=== PATIENT | male | born 1950 | race African-American/Black ===

== ENCOUNTER 2019-11-11 18:27 | Inpatient (IN) | payer OTHER ==
[2019-11-11 19:41] VITALS: BMI 25.2
--- NOTE | 2019-11-11 21:23 | HP ---
CIWA Score - Admission Criteria [facility]ASAS Guidelines: Admission for Medically Managed Detox: Requires at least one of the followin. CIWA greater than 12 2. Seizures within the past 24 hours 3. Delirium tremens within the past 24 hours 4. Hallucinations within the past 24 hours 5. Acute intervention needed for co occurring medical disorder 6. Acute intervention needed for co occurring psychiatric disorder 7. Severe withdrawal that cannot be handled at a lower level of care (continued vomiting, continued diarrhea, abnormal vital signs) requiring intravenous medication and/or fluids 8. Admitting History and Physical - Smoking History Smoking history: Current every day smoker Have you smoked in the past 12 months: Yes Aproximately how many cigarettes per day: 20 - Alcohol/Substance Use Hx Alcohol Use: Yes Admission ROS BHS - HPI Chief Complaint: Here for rehab cause I want to stop drinking. I'm an alcoholic. Allergies/Adverse Reactions: Allergies Allergy/AdvReac Type Severity Reaction Status Date / Time No Known Allergies Allergy Verified 11/11/19 19:27 History of Present Illness: 68 yo presents to [facility] post discharge from [facility]. Was thee from 11/07 to 11/11/19. Adm dx pneumonia and alcohol dependence w/ withdrawal. and s/p facial trauma from fall. Fall r/t intoxication. CT 11/06/19 Maxillofacial - No fx CT Head 11/06/19: wnl CT Cervical spine - No gross acute fx CXR: 11/07: Retrocardiac opacity possibly atelecaisis or pneumonia. [facility] discharge papers in chart. Denies hx seizures. Longest sobriety 3 years in . Alcohol heavy drinking began at age [age]. Was drinking 1 - 1.5 pints vodka daily for years. Last use was 11/06/19, when hospitalized. Nicotine use since age 17. Smokes 1/2 PPD. Cocaine use many years ago. PMHx: HTN, DM, Neuropathy - legs & feet. States has been non-compliant w/ medications. MHHx: Insomnia: Denies thoughts of harming self or others. SHx: Stays w/ mother or a custodial. Unemployed. Denies legal issues. Patient Name: Nirav Madrid Date: 1950 Address: [address] [place] [address] Sex: Male Rx Written Rx Dispensed Drug Quantity Days Supply Prescriber Name 03/28/2019 03/29/2019 lyrica 75 mg capsule 14 7 [facility] 12/12/2018 01/03/2019 lyrica 75 mg capsule 14 14 Clemente Coello MD Patient Name: Nirav Madrid Date: 1950 Address: [address] [place] [address] [place] [address] Sex: Male Rx Written Rx Dispensed Drug Quantity Days Supply Prescriber Name 12/08/2018 12/08/2018 lyrica 75 mg capsule 60 30 Alex Patel Exam Limitations: No Limitations - Ebola screening Have you traveled outside of the country in the last 21 days: No (N) Have you had contact with anyone from an Ebola affected area: No Have you been sick,other than usual withdrawal symptoms: Yes (Facial/Head trauma ) Do you have a fever: No - Review of Systems Constitutional: Changes in sleep (Difficulty falling asleep - takes illicit seroquel) EENT: reports: Blurred Vision, Other ((L) black eye and swollen eyes.) Respiratory: reports: Cough (Nosiy) Cardiac: reports: No Symptoms Reported GI: reports: No Symptoms Reported : reports: No Symptoms Reported Musculoskeletal: reports: Joint Pain (finger stiffness) Integumentary: reports: Bruising ((L) eye area) Neuro: reports: Numbness (Feet and legs), Tremors (mild) Endocrine: reports: Increased Thirst Hematology: reports: No Symptoms Reported Psychiatric: reports: Judgement Intact, Mood/Affect Appropiate, Orientated x3 Other Systems: Reviewed and Negative Patient History - Patient Medical History Hx Anemia: No Hx Asthma: No Hx Chronic Obstructive Pulmonary Disease (COPD): No Hx Cancer: No Hx Cardiac Disorders: No Hx Congestive Heart Failure: No Hx Hypertension: Yes (NON COMPLIANCE) Hx Hypercholesterolemia: No Hx Pacemaker: No HX Cerebrovascular Accident: No Hx Seizures: No Hx Dementia: No Hx Diabetes: Yes (NON COMPLIANCE) Hx Gastrointestinal Disorders: No Hx Liver Disease: No Hx Genitourinary Disorders: No Hx Sexually Transmitted Disorders: No Hx Renal Disease (ESRD): No Hx Thyroid Disease: No Hx Human Immunodeficiency Virus (HIV): No (LAST 2013) Hx Hepatitis C: Yes Hx Depression: Yes (NO MED) Hx Suicide Attempt: No Hx Bipolar Disorder: No Hx Schizophrenia: No - Patient Surgical History Past Surgical History: Yes Hx Neurologic Surgery: No Hx Cataract Extraction: No Hx Cardiac Surgery: No Hx Lung Surgery: Yes (S/P RIGHT THORACOTOMY IN 1978 BENIGN CYST) Hx Breast Surgery: No Hx Breast Biopsy: No Hx Abdominal Surgery: No Hx Appendectomy: No Hx Cholecystectomy: No Hx Genitourinary Surgery: No Hx Section: No Hx Orthopedic Surgery: No Other Surgical History: right thoratocomy 1978 Anesthesia Reaction: No - PPD History Previous Implant?: Yes Documented Results: Negative w/proof Implanted On Prior [facility] Admission?: Yes Date: 05/01/14 Results: 0 mm PPD to be Administered?: Yes - Smoking Cessation Smoking history: Current every day smoker Have you smoked in the past 12 months: Yes Aproximately how many cigarettes per day: 10 Cigars Per Day: 0 Hx Chewing Tobacco Use: No Initiated information on smoking cessation: Yes 'Breaking Loose' booklet given: 11/11/19 - Substance & Tx. History Hx Alcohol Use: Yes Hx Substance Use: Yes Substance Use Type: Alcohol Hx Substance Use Treatment: No (detox, rehab) - Substances abused Alcohol Substance route: Oral Frequency: Daily Amount used: 1 PINT OF VODKA Age of first use: 22 Date of last use: 11/08/19 Admission Physical Exam BHS - Vital Signs Vital Signs: Vital Signs - 24 hr 11/11/19 19:23 Temperature 97.2 F L Pulse Rate 82 Respiratory 18 Rate Blood Pressure 149/99 - Physical General Appearance: Yes: Nourished, Tremorous (Mild tremors of hands) HEENTM: Yes: Hearing grossly Normal, Normocephalic, Normal Voice, SARIKA, Pharynx Normal, Orbits (Periorbital ecchimosis. Hematoma (L) upper outer orbital area.) , Other (Perforated nasal septum.) Respiratory: Yes: Lungs Clear (Pulse ox = 96 %.), No Respiratory Distress, Other (Noisy cough productive of thick whitish phlegm.) Neck: Yes: No masses,lesions,Nodules, Supple Breast: Yes: Breast Exam Deferred Cardiology: Yes: Regular Rhythm, Regular Rate, S1, S2 Abdominal: Yes: Normal Bowel Sounds, Non Tender, Soft Genitourinary: Yes: Within Normal Limits Back: Yes: Normal Inspection Musculoskeletal: Yes: full range of Motion, Other (Gait slightly unsteady.) Extremities: Yes: Tremors (Mild tremors of hands), Erythema (Increased pedal erythema w/ cap refill sluggish at 4 sec. pedal pulses (+).) Neurological: Yes: breaker mechanic II-XII NML intact, Fully Oriented, Alert, Motor Strength 5/5, Normal Mood/Affect, Normal Response Integumentary: Yes: Normal Color, Warm, Pitting Edema (Toes to ankles.) Lymphatic: Yes: Within Normal Limits - Diagnostic (1) Alcohol use disorder, moderate, in early remission Current Visit: Yes Status: Acute (2) History of pneumonia Current Visit: Yes Status: Acute Comment: Rx'd at [place] [facility] and dose con't here (3) HTN (hypertension) Current Visit: Yes Status: Acute Qualifiers: Hypertension type: essential hypertension Qualified Code(s): I10 - Essential (primary) hypertension (4) Nicotine dependence Current Visit: Yes Status: Chronic Qualifiers: Nicotine product type: cigarettes Substance use status: uncomplicated Qualified Code(s): F17.210 - Nicotine dependence, cigarettes, uncomplicated (5) Type 2 diabetes mellitus Current Visit: Yes Status: Chronic Qualifiers: Diabetes mellitus bed bug exterminator insulin use: unspecified mcc insulin use status Diabetes mellitus complication status: with neurologic complications Diabetes mellitus complication detail: with unspecified neuropathy Qualified Code(s): E11.40 - Type 2 diabetes mellitus with diabetic neuropathy, unspecified (6) Perforated nasal septum Current Visit: Yes Status: Chronic (7) Periorbital hematoma of left eye Current Visit: Yes Status: Acute Comment: w/ surrounding ecchimosis x 5 days (8) Unsteady gait Current Visit: Yes Status: Chronic Cleared for Admission BHS - Detox or Rehab Claeared for Rehab Admission: Yes Breathalyzer - Breathalyzer Breathalyzer: 0 Urine Drug Screen - Test Device Lot number: [id number] Expiration date: 06/08/21 - Control Is test valid?: Yes - Results Drug screen NEGATIVE: No Urine drug screen results: BZO-Benzodiazepines Inpatient Rehab Admission - Rehab Decision to Admit Inpatient rehab admission?: Yes - Initial Determination Are CD services needed?: Yes Free of communicable disease: Yes Not in need of hospitalization: Yes - Rehab Admission Criteria Previous failed treatment: Yes Poor recovery environment: Yes Comorbidities: Yes Lacks judgement: No Patient is meeting Inpatient Rehab admission criteria:: Yes
[2019-11-11] MEDS ORDERED: AMOX TR/POT CLAV 875MG/125MG TABLETS (FP) PO SCH (22:00)
[2019-11-11] MEDS ORDERED: P-EPHED 60MG/TRIPROLIDI 2.5MG TABLET PO PRN (22:41)
[2019-11-11] MEDS ORDERED: LOPERAMIDE HCL 2 MG CAPSULE PO PRN (22:41)
[2019-11-11] MEDS ORDERED: MAG HYDROX/AL HYDROX/SIMETH 30 ML UNIT-DOSE CUP PO PRN (22:41)
[2019-11-11] MEDS ORDERED: MAGNESIUM CITRATE 300 ML BOTTLE PO PRN (22:41)
[2019-11-11] MEDS ORDERED: MENTHOL/PHENOL 1 EACH UD MM PRN (22:41)
[2019-11-11] MEDS ORDERED: MAGNESIUM HYDROX 2400MG/30ML ORAL SUSPENSION 30 ML CUP PO PRN (22:41)
[2019-11-11] MEDS ORDERED: TUBERCULIN PPD 5 TU/0.1ML VIAL ID ONE (23:49)
[2019-11-12] MEDS: guaiFENesin 200 MG/10 ML 10 ML UNIT-DOSE CUPS PO SCH ×5 (00:05→22:03)
[2019-11-12] MEDS: MELATONIN 5 MG TABLETS PO PRN ×2 (00:49→21:11)
[2019-11-12] MEDS: IBUPROFEN 400 MG TABLET (FP) PO PRN ×2 (00:50→16:45)
[2019-11-12] MEDS: AMOX TR/POT CLAV 875MG/125MG TABLETS (FP) PO SCH ×2 (07:12→18:07)
[2019-11-12] MEDS ORDERED: INSULIN (NOVOLOG) ASPART 100 UNITS/ML 10ML VIAL ONE ×5 (07:15→21:43)
[2019-11-12] MEDS: INSULIN SLIDING SCALE (NOVOLOG) 1 VIAL SQ SCH ×4 (07:15→21:13)
[2019-11-12 09:58] LABS: HEMATOCRIT 33.8 % (35.4-49); HEMOGLOBIN 11.1 GM/dL (11.7-16.9); MCH 30.8 pg (25.7-33.7); MCHC 32.9 g/dl (32.0-35.9); MEAN CELL VOLUME 93.6 fl (80-96); MEAN PLT VOLUME 9.1 fl (7.5-11.1); PLATELET COUNT 219 K/MM3 (134-434); RBC 3.61 M/mm3 (4.00-5.60); RDW 14.7 % (11.9-15.9); WHITE BLOOD COUNT 6.1 K/mm3 (4.0-10.0)
[2019-11-12 10:01] LABS: ALBUMIN 2.9 g/dl (3.4-5.0); BILIRUBIN,TOTAL 0.2 mg/dL (0.2-1); BLOOD UREA NITROGEN 15.1 mg/dL (7-18); CALCIUM 8.6 mg/dL (8.5-10.1); CREATININE 0.9 mg/dL (0.55-1.3); POTASSIUM 3.6 mmol/L (3.5-5.1); TOT PROT 6.7 g/dl (6.4-8.2)
[2019-11-12] MEDS: NICOTINE 14 MG/24 HOURS TOPICAL PATCH TD SCH (10:06)
[2019-11-12] MEDS: PRENATAL VITAMINS W/ FOLIC ACID TABLET (FP) PO SCH (10:06)
[2019-11-12] MEDS: GABAPENTIN 100 MG CAPSULE PO SCH ×2 (10:06→21:12)
[2019-11-12] MEDS: ACETAMINOPHEN 325 MG TABLET (FP) PO PRN (10:09)
[2019-11-12] MEDS: THIAMINE HCL 100 MG TABLET (FP) PO SCH (21:12)
[2019-11-12] MEDS: ALBUTEROL SO4 0.083% IH SOL 2.5 MG/3 ML VIAL.NEB. NEB SCH (22:04)
[2019-11-13] MEDS: hydrOXYzine PAMOATE 25 MG CAPSULE (FP) PO PRN ×2 (00:04→06:26)
[2019-11-13] MEDS: guaiFENesin 200 MG/10 ML 10 ML UNIT-DOSE CUPS PO SCH ×4 (06:22→21:53)
[2019-11-13] MEDS: INSULIN SLIDING SCALE (NOVOLOG) 1 VIAL SQ SCH ×4 (06:29→21:18)
[2019-11-13] MEDS: IBUPROFEN 400 MG TABLET (FP) PO PRN (06:29)
[2019-11-13] MEDS: ALBUTEROL SO4 0.083% IH SOL 2.5 MG/3 ML VIAL.NEB. NEB SCH ×3 (06:31→21:54)
[2019-11-13] MEDS: AMOX TR/POT CLAV 875MG/125MG TABLETS (FP) PO SCH ×2 (07:00→18:01)
[2019-11-13] MEDS: GABAPENTIN 100 MG CAPSULE PO SCH ×2 (10:04→21:16)
[2019-11-13] MEDS: NICOTINE 14 MG/24 HOURS TOPICAL PATCH TD SCH (10:04)
[2019-11-13] MEDS: PRENATAL VITAMINS W/ FOLIC ACID TABLET (FP) PO SCH (10:04)
[2019-11-13] MEDS: ACETAMINOPHEN 325 MG TABLET (FP) PO PRN (10:05)
[2019-11-13] MEDS ORDERED: INSULIN (NOVOLOG) ASPART 100 UNITS/ML 10ML VIAL ONE ×3 (12:15→21:36)
[2019-11-13] MEDS: THIAMINE HCL 100 MG TABLET (FP) PO SCH (21:16)
[2019-11-13] MEDS: MELATONIN 5 MG TABLETS PO PRN (21:17)
[2019-11-14] MEDS: guaiFENesin 200 MG/10 ML 10 ML UNIT-DOSE CUPS PO SCH ×3 (05:00→16:35)
[2019-11-14] MEDS: IBUPROFEN 400 MG TABLET (FP) PO PRN (06:38)
[2019-11-14] MEDS: AMOX TR/POT CLAV 875MG/125MG TABLETS (FP) PO SCH ×2 (07:20→18:32)
[2019-11-14] MEDS ORDERED: INSULIN (NOVOLOG) ASPART 100 UNITS/ML 10ML VIAL ONE ×4 (07:24→22:29)
[2019-11-14] MEDS: INSULIN SLIDING SCALE (NOVOLOG) 1 VIAL SQ SCH ×4 (07:32→21:38)
[2019-11-14] MEDS: ALBUTEROL SO4 0.083% IH SOL 2.5 MG/3 ML VIAL.NEB. NEB SCH ×3 (07:48→21:36)
[2019-11-14] MEDS: PRENATAL VITAMINS W/ FOLIC ACID TABLET (FP) PO SCH (10:18)
[2019-11-14] MEDS: GABAPENTIN 100 MG CAPSULE PO SCH ×2 (10:18→21:33)
[2019-11-14] MEDS: NICOTINE 14 MG/24 HOURS TOPICAL PATCH TD SCH (10:19)
[2019-11-14] MEDS: ACETAMINOPHEN 325 MG TABLET (FP) PO PRN (11:17)
--- NOTE | 2019-11-14 14:25 | PN ---
[facility] Progress Note Note: Pt is a 69 y/o male with a hx of AGUS admitted to rehab from [facility]. Pt was admitted to [facility] from 11/07/19 to 11/11/19 for pneumonia and detox before admission to rehab on 11/11/19. Pt reports he has a primary care provider, Dr. Salvador at [address] [place], [place]. Pt's metformin 1000 mg po BID verified from his [facility] home pharmacy on [address] [place], [place]. PMHx: Asthma HTN(no med) DM(on metformin) Hep C Neuropathy Lower Extremities Vital Signs - 24 hr 11/14/19 11/14/19 11/14/19 00:30 03:30 07:09 Temperature 97.8 F Pulse Rate 71 Respiratory 18 18 18 Rate Blood Pressure 132/94 Laboratory Tests 11/12/19 11/12/19 11/12/19 07:13 07:20 07:20 WBC 6.1 RBC 3.61 L Hgb 11.1 L Hct 33.8 L MCV 93.6 MCH 30.8 MCHC 32.9 RDW 14.7 D Plt Count 219 MPV 9.1 Sodium Potassium Chloride Carbon Dioxide Anion Gap BUN Creatinine Est GFR (CKD-EPI)AfAm Est GFR (CKD-EPI)NonAf POC Glucometer 287 Random Glucose Calcium Total Bilirubin AST ALT Alkaline Phosphatase Total Protein Albumin RPR Titer Nonreactive 11/12/19 11/12/19 11/12/19 07:20 12:15 16:33 WBC RBC Hgb Hct MCV MCH MCHC RDW Plt Count MPV Sodium 138 Potassium 3.6 Chloride 104 Carbon Dioxide 27 Anion Gap 8 BUN 15.1 Creatinine 0.9 Est GFR (CKD-EPI)AfAm 102.07 Est GFR (CKD-EPI)NonAf 88.07 POC Glucometer 420 326 Random Glucose 281 H Calcium 8.6 Total Bilirubin 0.2 AST 99 H ALT 75 H Alkaline Phosphatase 123 H Total Protein 6.7 Albumin 2.9 L RPR Titer 11/12/19 11/13/19 11/13/19 20:25 06:28 12:00 WBC RBC Hgb Hct MCV MCH MCHC RDW Plt Count MPV Sodium Potassium Chloride Carbon Dioxide Anion Gap BUN Creatinine Est GFR (CKD-EPI)AfAm Est GFR (CKD-EPI)NonAf POC Glucometer 375 179 542 Random Glucose Calcium Total Bilirubin AST ALT Alkaline Phosphatase Total Protein Albumin RPR Titer 11/13/19 11/13/19 11/14/19 16:29 20:32 06:34 WBC RBC Hgb Hct MCV MCH MCHC RDW Plt Count MPV Sodium Potassium Chloride Carbon Dioxide Anion Gap BUN Creatinine Est GFR (CKD-EPI)AfAm Est GFR (CKD-EPI)NonAf POC Glucometer 237 402 271 Random Glucose Calcium Total Bilirubin AST ALT Alkaline Phosphatase Total Protein Albumin RPR Titer 11/14/19 11:19 WBC RBC Hgb Hct MCV MCH MCHC RDW Plt Count MPV Sodium Potassium Chloride Carbon Dioxide Anion Gap BUN Creatinine Est GFR (CKD-EPI)AfAm Est GFR (CKD-EPI)NonAf POC Glucometer 407 Random Glucose Calcium Total Bilirubin AST ALT Alkaline Phosphatase Total Protein Albumin RPR Titer Labs noted elevated liver enzymes hyperglycemia(hx DM) Alert o x 3 nad oob ambulating with cane(unsteady gait) A/P new rehab pt Maintain safety fall risk precaution reorder metformin 1000 mg po BID
[2019-11-14] MEDS: metFORMIN HCL 500 MG TABLET (FP) PO SCH (16:35)
[2019-11-14] MEDS: THIAMINE HCL 100 MG TABLET (FP) PO SCH (21:33)
[2019-11-14] MEDS: MELATONIN 5 MG TABLETS PO PRN (21:36)
[2019-11-15] MEDS: metFORMIN HCL 500 MG TABLET (FP) PO SCH ×2 (07:09→16:37)
[2019-11-15] MEDS: INSULIN SLIDING SCALE (NOVOLOG) 1 VIAL SQ SCH ×4 (07:12→21:28)
[2019-11-15] MEDS ORDERED: INSULIN (NOVOLOG) ASPART 100 UNITS/ML 10ML VIAL ONE ×4 (07:12→20:58)
[2019-11-15] MEDS: PRENATAL VITAMINS W/ FOLIC ACID TABLET (FP) PO SCH (10:25)
[2019-11-15] MEDS: GABAPENTIN 100 MG CAPSULE PO SCH ×2 (10:25→21:28)
[2019-11-15] MEDS: NICOTINE 14 MG/24 HOURS TOPICAL PATCH TD SCH (10:26)
[2019-11-15] MEDS: ACETAMINOPHEN 325 MG TABLET (FP) PO PRN (10:26)
[2019-11-15] MEDS: ALBUTEROL SO4 0.083% IH SOL 2.5 MG/3 ML VIAL.NEB. NEB SCH ×3 (10:28→21:29)
[2019-11-15] MEDS: THIAMINE HCL 100 MG TABLET (FP) PO SCH (21:28)
[2019-11-16] MEDS: metFORMIN HCL 500 MG TABLET (FP) PO SCH ×2 (06:39→16:29)
[2019-11-16] MEDS: INSULIN SLIDING SCALE (NOVOLOG) 1 VIAL SQ SCH ×4 (07:09→21:30)
[2019-11-16] MEDS ORDERED: INSULIN (NOVOLOG) ASPART 100 UNITS/ML 10ML VIAL ONE ×4 (07:10→22:17)
[2019-11-16] MEDS: PRENATAL VITAMINS W/ FOLIC ACID TABLET (FP) PO SCH (10:18)
[2019-11-16] MEDS: GABAPENTIN 100 MG CAPSULE PO SCH ×2 (10:18→21:28)
[2019-11-16] MEDS: NICOTINE 14 MG/24 HOURS TOPICAL PATCH TD SCH (10:18)
[2019-11-16 17:39] LABS: URINE APPEARANCE CLEAR; URINE BILIRUBIN NEGATIVE (NEGATIVE); URINE COLOR YELLOW; URINE GLUCOSE (UA) 3+ (NEGATIVE); URINE KETONE NEGATIVE (NEGATIVE); URINE LEUK ESTERASE NEGATIVE (NEGATIVE); URINE NITRITE NEGATIVE (NEGATIVE); URINE PROTEIN TRACE (NEGATIVE); URINE UROBILINOGEN 0.2 mg/dL (0.2-1.0)
[2019-11-16] MEDS: THIAMINE HCL 100 MG TABLET (FP) PO SCH (21:28)
[2019-11-16] MEDS: MELATONIN 5 MG TABLETS PO PRN (21:28)
[2019-11-17] MEDS: metFORMIN HCL 500 MG TABLET (FP) PO SCH ×2 (06:53→16:22)
[2019-11-17] MEDS: IBUPROFEN 400 MG TABLET (FP) PO PRN (06:54)
[2019-11-17] MEDS ORDERED: INSULIN (NOVOLOG) ASPART 100 UNITS/ML 10ML VIAL ONE ×4 (06:56→22:11)
[2019-11-17] MEDS: INSULIN SLIDING SCALE (NOVOLOG) 1 VIAL SQ SCH ×4 (06:58→21:20)
[2019-11-17] MEDS: GABAPENTIN 100 MG CAPSULE PO SCH ×2 (10:23→21:19)
[2019-11-17] MEDS: PRENATAL VITAMINS W/ FOLIC ACID TABLET (FP) PO SCH (10:23)
[2019-11-17] MEDS: NICOTINE 14 MG/24 HOURS TOPICAL PATCH TD SCH (10:23)
[2019-11-17] MEDS: NICOTINE POLACRILEX 2 MG GUM BC PRN (10:24)
[2019-11-17] MEDS: MELATONIN 5 MG TABLETS PO PRN (21:19)
[2019-11-17] MEDS: THIAMINE HCL 100 MG TABLET (FP) PO SCH (21:19)
[2019-11-18] MEDS: metFORMIN HCL 500 MG TABLET (FP) PO SCH ×2 (06:39→16:44)
[2019-11-18] MEDS ORDERED: INSULIN (NOVOLOG) ASPART 100 UNITS/ML 10ML VIAL ONE ×5 (06:41→20:57)
[2019-11-18] MEDS: INSULIN SLIDING SCALE (NOVOLOG) 1 VIAL SQ SCH ×4 (06:41→21:29)
[2019-11-18] MEDS: PRENATAL VITAMINS W/ FOLIC ACID TABLET (FP) PO SCH (10:21)
[2019-11-18] MEDS: GABAPENTIN 100 MG CAPSULE PO SCH ×2 (10:21→21:30)
[2019-11-18] MEDS: NICOTINE 14 MG/24 HOURS TOPICAL PATCH TD SCH (10:22)
[2019-11-18] MEDS: MELATONIN 5 MG TABLETS PO PRN (21:30)
[2019-11-18] MEDS: THIAMINE HCL 100 MG TABLET (FP) PO SCH (21:30)
[2019-11-19] MEDS: metFORMIN HCL 500 MG TABLET (FP) PO SCH ×2 (07:36→17:04)
[2019-11-19] MEDS ORDERED: INSULIN (NOVOLOG) ASPART 100 UNITS/ML 10ML VIAL ONE ×4 (07:47→20:50)
[2019-11-19] MEDS: INSULIN SLIDING SCALE (NOVOLOG) 1 VIAL SQ SCH ×4 (08:13→21:29)
[2019-11-19] MEDS: GABAPENTIN 100 MG CAPSULE PO SCH ×2 (10:41→21:29)
[2019-11-19] MEDS: PRENATAL VITAMINS W/ FOLIC ACID TABLET (FP) PO SCH (10:41)
[2019-11-19] MEDS: NICOTINE 14 MG/24 HOURS TOPICAL PATCH TD SCH (10:41)
[2019-11-19] MEDS: THIAMINE HCL 100 MG TABLET (FP) PO SCH (21:29)
[2019-11-20] MEDS: metFORMIN HCL 500 MG TABLET (FP) PO SCH ×2 (07:24→16:59)
[2019-11-20] MEDS ORDERED: INSULIN (NOVOLOG) ASPART 100 UNITS/ML 10ML VIAL ONE ×3 (07:26→22:17)
[2019-11-20] MEDS: INSULIN SLIDING SCALE (NOVOLOG) 1 VIAL SQ SCH ×4 (07:27→21:30)
[2019-11-20] MEDS: NICOTINE 14 MG/24 HOURS TOPICAL PATCH TD SCH (10:02)
[2019-11-20] MEDS: PRENATAL VITAMINS W/ FOLIC ACID TABLET (FP) PO SCH (10:03)
[2019-11-20] MEDS: GABAPENTIN 100 MG CAPSULE PO SCH ×2 (10:03→21:27)
[2019-11-20] MEDS: THIAMINE HCL 100 MG TABLET (FP) PO SCH (21:27)
[2019-11-20] MEDS: MELATONIN 5 MG TABLETS PO PRN (21:28)
[2019-11-21] MEDS: metFORMIN HCL 500 MG TABLET (FP) PO SCH ×2 (06:30→16:34)
[2019-11-21] MEDS: INSULIN SLIDING SCALE (NOVOLOG) 1 VIAL SQ SCH ×4 (06:31→21:24)
[2019-11-21] MEDS: NICOTINE 14 MG/24 HOURS TOPICAL PATCH TD SCH (10:34)
[2019-11-21] MEDS: PRENATAL VITAMINS W/ FOLIC ACID TABLET (FP) PO SCH (10:34)
[2019-11-21] MEDS: GABAPENTIN 100 MG CAPSULE PO SCH ×2 (10:34→21:23)
[2019-11-21] MEDS ORDERED: INSULIN (NOVOLOG) ASPART 100 UNITS/ML 10ML VIAL ONE ×3 (11:55→20:26)
[2019-11-21] MEDS: IBUPROFEN 400 MG TABLET (FP) PO PRN (12:03)
[2019-11-21] MEDS: MELATONIN 5 MG TABLETS PO PRN (21:23)
[2019-11-21] MEDS: THIAMINE HCL 100 MG TABLET (FP) PO SCH (21:23)
[2019-11-22] MEDS: metFORMIN HCL 500 MG TABLET (FP) PO SCH ×2 (06:23→16:44)
[2019-11-22] MEDS: INSULIN SLIDING SCALE (NOVOLOG) 1 VIAL SQ SCH ×4 (06:23→21:28)
[2019-11-22] MEDS: GABAPENTIN 100 MG CAPSULE PO SCH ×2 (10:26→21:28)
[2019-11-22] MEDS: PRENATAL VITAMINS W/ FOLIC ACID TABLET (FP) PO SCH (10:26)
[2019-11-22] MEDS: NICOTINE 14 MG/24 HOURS TOPICAL PATCH TD SCH (10:26)
[2019-11-22] MEDS: IBUPROFEN 400 MG TABLET (FP) PO PRN (11:56)
[2019-11-22] MEDS: THIAMINE HCL 100 MG TABLET (FP) PO SCH (21:27)
[2019-11-22] MEDS: MELATONIN 5 MG TABLETS PO PRN (21:27)
[2019-11-23] MEDS: IBUPROFEN 400 MG TABLET (FP) PO PRN ×2 (06:48→13:20)
[2019-11-23] MEDS: metFORMIN HCL 500 MG TABLET (FP) PO SCH ×2 (06:48→16:30)
[2019-11-23] MEDS ORDERED: INSULIN (NOVOLOG) ASPART 100 UNITS/ML 10ML VIAL ONE ×4 (06:50→22:14)
[2019-11-23] MEDS: INSULIN SLIDING SCALE (NOVOLOG) 1 VIAL SQ SCH ×4 (06:52→21:32)
[2019-11-23] MEDS: GABAPENTIN 100 MG CAPSULE PO SCH ×2 (10:59→21:31)
[2019-11-23] MEDS: PRENATAL VITAMINS W/ FOLIC ACID TABLET (FP) PO SCH (10:59)
[2019-11-23] MEDS: NICOTINE 14 MG/24 HOURS TOPICAL PATCH TD SCH (11:00)
[2019-11-23] MEDS: ACETAMINOPHEN 325 MG TABLET (FP) PO PRN (11:00)
[2019-11-23] MEDS: MELATONIN 5 MG TABLETS PO PRN (21:31)
[2019-11-23] MEDS: THIAMINE HCL 100 MG TABLET (FP) PO SCH (21:31)
[2019-11-24] MEDS: metFORMIN HCL 500 MG TABLET (FP) PO SCH ×2 (06:43→16:25)
[2019-11-24] MEDS: IBUPROFEN 400 MG TABLET (FP) PO PRN ×2 (06:44→11:11)
[2019-11-24] MEDS ORDERED: INSULIN (NOVOLOG) ASPART 100 UNITS/ML 10ML VIAL ONE ×4 (07:04→22:04)
[2019-11-24] MEDS: INSULIN SLIDING SCALE (NOVOLOG) 1 VIAL SQ SCH ×4 (07:40→21:26)
[2019-11-24] MEDS: PRENATAL VITAMINS W/ FOLIC ACID TABLET (FP) PO SCH (11:11)
[2019-11-24] MEDS: GABAPENTIN 100 MG CAPSULE PO SCH ×2 (11:11→21:29)
[2019-11-24] MEDS: NICOTINE 14 MG/24 HOURS TOPICAL PATCH TD SCH (12:10)
[2019-11-24] MEDS: THIAMINE HCL 100 MG TABLET (FP) PO SCH (21:28)
[2019-11-24] MEDS: MELATONIN 5 MG TABLETS PO PRN (21:28)
[2019-11-25] MEDS: metFORMIN HCL 500 MG TABLET (FP) PO SCH ×2 (06:35→16:37)
[2019-11-25] MEDS: INSULIN SLIDING SCALE (NOVOLOG) 1 VIAL SQ SCH ×4 (06:36→21:21)
[2019-11-25] MEDS: GABAPENTIN 100 MG CAPSULE PO SCH ×2 (10:41→21:20)
[2019-11-25] MEDS: PRENATAL VITAMINS W/ FOLIC ACID TABLET (FP) PO SCH (10:41)
[2019-11-25] MEDS: NICOTINE 14 MG/24 HOURS TOPICAL PATCH TD SCH (10:42)
[2019-11-25] MEDS ORDERED: INSULIN (NOVOLOG) ASPART 100 UNITS/ML 10ML VIAL ONE ×4 (11:57→21:54)
[2019-11-25] MEDS: MELATONIN 5 MG TABLETS PO PRN (21:20)
[2019-11-25] MEDS: THIAMINE HCL 100 MG TABLET (FP) PO SCH (21:20)
[2019-11-26] MEDS: metFORMIN HCL 500 MG TABLET (FP) PO SCH ×2 (06:26→16:29)
[2019-11-26] MEDS ORDERED: INSULIN (NOVOLOG) ASPART 100 UNITS/ML 10ML VIAL ONE ×5 (06:29→21:52)
[2019-11-26] MEDS: INSULIN SLIDING SCALE (NOVOLOG) 1 VIAL SQ SCH ×4 (06:29→21:25)
[2019-11-26] MEDS: NICOTINE 14 MG/24 HOURS TOPICAL PATCH TD SCH (10:06)
[2019-11-26] MEDS: PRENATAL VITAMINS W/ FOLIC ACID TABLET (FP) PO SCH (10:07)
[2019-11-26] MEDS: GABAPENTIN 100 MG CAPSULE PO SCH ×2 (10:07→21:24)
[2019-11-26] MEDS: MELATONIN 5 MG TABLETS PO PRN (21:24)
[2019-11-26] MEDS: THIAMINE HCL 100 MG TABLET (FP) PO SCH (21:24)
[2019-11-27] MEDS: metFORMIN HCL 500 MG TABLET (FP) PO SCH ×2 (06:53→16:54)
[2019-11-27] MEDS: INSULIN SLIDING SCALE (NOVOLOG) 1 VIAL SQ SCH ×4 (06:53→21:36)
[2019-11-27] MEDS: PRENATAL VITAMINS W/ FOLIC ACID TABLET (FP) PO SCH (10:02)
[2019-11-27] MEDS: NICOTINE 14 MG/24 HOURS TOPICAL PATCH TD SCH (10:02)
[2019-11-27] MEDS: GABAPENTIN 100 MG CAPSULE PO SCH ×2 (10:02→21:36)
[2019-11-27] MEDS ORDERED: INSULIN (NOVOLOG) ASPART 100 UNITS/ML 10ML VIAL ONE ×3 (12:01→21:34)
[2019-11-27] MEDS: IBUPROFEN 400 MG TABLET (FP) PO PRN (12:10)
[2019-11-27] MEDS: THIAMINE HCL 100 MG TABLET (FP) PO SCH (21:36)
[2019-11-27] MEDS: MELATONIN 5 MG TABLETS PO PRN (21:37)
[2019-11-28] MEDS: metFORMIN HCL 500 MG TABLET (FP) PO SCH ×2 (06:52→16:29)
[2019-11-28] MEDS: INSULIN SLIDING SCALE (NOVOLOG) 1 VIAL SQ SCH ×4 (06:53→21:29)
[2019-11-28] MEDS: IBUPROFEN 400 MG TABLET (FP) PO PRN (06:54)
[2019-11-28] MEDS: GABAPENTIN 100 MG CAPSULE PO SCH ×2 (10:09→21:28)
[2019-11-28] MEDS: PRENATAL VITAMINS W/ FOLIC ACID TABLET (FP) PO SCH (10:09)
[2019-11-28] MEDS: NICOTINE 14 MG/24 HOURS TOPICAL PATCH TD SCH (10:09)
[2019-11-28] MEDS: ACETAMINOPHEN 325 MG TABLET (FP) PO PRN (10:33)
[2019-11-28] MEDS ORDERED: INSULIN (NOVOLOG) ASPART 100 UNITS/ML 10ML VIAL ONE ×5 (11:22→21:38)
[2019-11-28] MEDS: THIAMINE HCL 100 MG TABLET (FP) PO SCH (21:28)
[2019-11-28] MEDS: MELATONIN 5 MG TABLETS PO PRN (21:28)
[2019-11-29] MEDS: INSULIN SLIDING SCALE (NOVOLOG) 1 VIAL SQ SCH ×4 (07:57→21:33)
[2019-11-29] MEDS: metFORMIN HCL 500 MG TABLET (FP) PO SCH ×2 (07:57→16:47)
[2019-11-29] MEDS: GABAPENTIN 100 MG CAPSULE PO SCH ×3 (10:46→21:30)
[2019-11-29] MEDS: PRENATAL VITAMINS W/ FOLIC ACID TABLET (FP) PO SCH (10:46)
[2019-11-29] MEDS: NICOTINE 14 MG/24 HOURS TOPICAL PATCH TD SCH (10:47)
[2019-11-29] MEDS: IBUPROFEN 400 MG TABLET (FP) PO PRN (10:48)
[2019-11-29] MEDS ORDERED: INSULIN (NOVOLOG) ASPART 100 UNITS/ML 10ML VIAL ONE ×3 (12:02→22:06)
[2019-11-29] MEDS: THIAMINE HCL 100 MG TABLET (FP) PO SCH (21:30)
[2019-11-29] MEDS: LISINOPRIL 10 MG TABLET (FP) PO SCH (21:30)
[2019-11-29] MEDS: MELATONIN 5 MG TABLETS PO PRN (21:31)
[2019-11-30] MEDS: GABAPENTIN 100 MG CAPSULE PO SCH ×3 (06:41→21:31)
[2019-11-30] MEDS: metFORMIN HCL 500 MG TABLET (FP) PO SCH ×2 (06:42→16:29)
[2019-11-30] MEDS: ACETAMINOPHEN 325 MG TABLET (FP) PO PRN ×2 (06:45→14:18)
[2019-11-30] MEDS: INSULIN SLIDING SCALE (NOVOLOG) 1 VIAL SQ SCH ×4 (07:05→21:34)
[2019-11-30] MEDS: IBUPROFEN 400 MG TABLET (FP) PO PRN (10:26)
[2019-11-30] MEDS: LISINOPRIL 10 MG TABLET (FP) PO SCH ×2 (10:26→21:31)
[2019-11-30] MEDS: NICOTINE 14 MG/24 HOURS TOPICAL PATCH TD SCH (10:27)
[2019-11-30] MEDS: PRENATAL VITAMINS W/ FOLIC ACID TABLET (FP) PO SCH (10:27)
[2019-11-30] MEDS ORDERED: INSULIN (NOVOLOG) ASPART 100 UNITS/ML 10ML VIAL ONE ×2 (12:05→21:33)
[2019-11-30] MEDS: hydrOXYzine PAMOATE 25 MG CAPSULE (FP) PO PRN (14:18)
[2019-11-30] MEDS: THIAMINE HCL 100 MG TABLET (FP) PO SCH (21:31)
[2019-11-30] MEDS: MELATONIN 5 MG TABLETS PO PRN (21:32)
[2019-12-01] MEDS: GABAPENTIN 100 MG CAPSULE PO SCH ×3 (06:35→21:22)
[2019-12-01] MEDS: metFORMIN HCL 500 MG TABLET (FP) PO SCH ×2 (06:36→16:22)
[2019-12-01] MEDS ORDERED: INSULIN (NOVOLOG) ASPART 100 UNITS/ML 10ML VIAL ONE ×3 (06:38→16:26)
[2019-12-01] MEDS: IBUPROFEN 400 MG TABLET (FP) PO PRN (06:38)
[2019-12-01] MEDS: INSULIN SLIDING SCALE (NOVOLOG) 1 VIAL SQ SCH ×4 (06:47→21:24)
[2019-12-01] MEDS: PRENATAL VITAMINS W/ FOLIC ACID TABLET (FP) PO SCH (10:15)
[2019-12-01] MEDS: LISINOPRIL 10 MG TABLET (FP) PO SCH ×2 (10:15→21:22)
[2019-12-01] MEDS: NICOTINE 14 MG/24 HOURS TOPICAL PATCH TD SCH (10:15)
[2019-12-01] MEDS: ACETAMINOPHEN 325 MG TABLET (FP) PO PRN ×2 (10:17→14:03)
[2019-12-01] MEDS: hydrOXYzine PAMOATE 25 MG CAPSULE (FP) PO PRN (14:03)
[2019-12-01] MEDS: MELATONIN 5 MG TABLETS PO PRN (21:22)
[2019-12-01] MEDS: THIAMINE HCL 100 MG TABLET (FP) PO SCH (21:22)
[2019-12-02] MEDS: GABAPENTIN 100 MG CAPSULE PO SCH ×3 (05:55→21:17)
[2019-12-02] MEDS: IBUPROFEN 400 MG TABLET (FP) PO PRN (05:55)
[2019-12-02] MEDS: metFORMIN HCL 500 MG TABLET (FP) PO SCH ×2 (06:17→16:23)
[2019-12-02] MEDS: INSULIN SLIDING SCALE (NOVOLOG) 1 VIAL SQ SCH ×4 (06:17→21:45)
[2019-12-02] MEDS: NICOTINE 14 MG/24 HOURS TOPICAL PATCH TD SCH (10:33)
[2019-12-02] MEDS: LISINOPRIL 10 MG TABLET (FP) PO SCH ×2 (10:33→21:17)
[2019-12-02] MEDS: PRENATAL VITAMINS W/ FOLIC ACID TABLET (FP) PO SCH (10:33)
[2019-12-02] MEDS: ACETAMINOPHEN 325 MG TABLET (FP) PO PRN (10:34)
[2019-12-02] MEDS ORDERED: INSULIN (NOVOLOG) ASPART 100 UNITS/ML 10ML VIAL ONE ×2 (16:22→16:30)
[2019-12-02] MEDS: THIAMINE HCL 100 MG TABLET (FP) PO SCH (21:17)
[2019-12-02] MEDS: MELATONIN 5 MG TABLETS PO PRN (21:17)
[2019-12-03] MEDS: metFORMIN HCL 500 MG TABLET (FP) PO SCH ×2 (06:22→16:40)
[2019-12-03] MEDS: GABAPENTIN 100 MG CAPSULE PO SCH ×3 (06:22→21:25)
[2019-12-03] MEDS: IBUPROFEN 400 MG TABLET (FP) PO PRN ×2 (06:22→21:26)
[2019-12-03] MEDS: INSULIN SLIDING SCALE (NOVOLOG) 1 VIAL SQ SCH ×4 (06:24→21:04)
[2019-12-03] MEDS: LISINOPRIL 10 MG TABLET (FP) PO SCH ×2 (09:55→21:25)
[2019-12-03] MEDS: ACETAMINOPHEN 325 MG TABLET (FP) PO PRN (09:55)
[2019-12-03] MEDS: PRENATAL VITAMINS W/ FOLIC ACID TABLET (FP) PO SCH (09:55)
[2019-12-03] MEDS: NICOTINE 14 MG/24 HOURS TOPICAL PATCH TD SCH (09:55)
[2019-12-03] MEDS ORDERED: INSULIN (NOVOLOG) ASPART 100 UNITS/ML 10ML VIAL ONE ×3 (12:14→23:56)
[2019-12-03] MEDS: THIAMINE HCL 100 MG TABLET (FP) PO SCH (21:26)
[2019-12-03] MEDS: MELATONIN 5 MG TABLETS PO PRN (21:27)
[2019-12-04] MEDS: GABAPENTIN 100 MG CAPSULE PO SCH ×3 (06:07→21:23)
[2019-12-04] MEDS: metFORMIN HCL 500 MG TABLET (FP) PO SCH ×2 (06:08→16:46)
[2019-12-04] MEDS: IBUPROFEN 400 MG TABLET (FP) PO PRN (06:10)
[2019-12-04] MEDS: INSULIN SLIDING SCALE (NOVOLOG) 1 VIAL SQ SCH ×4 (07:59→21:25)
[2019-12-04] MEDS: LISINOPRIL 10 MG TABLET (FP) PO SCH ×2 (10:31→21:23)
[2019-12-04] MEDS: ACETAMINOPHEN 325 MG TABLET (FP) PO PRN (10:31)
[2019-12-04] MEDS: PRENATAL VITAMINS W/ FOLIC ACID TABLET (FP) PO SCH (10:31)
[2019-12-04] MEDS: NICOTINE POLACRILEX 2 MG GUM BC PRN (10:32)
[2019-12-04] MEDS: hydrOXYzine PAMOATE 25 MG CAPSULE (FP) PO PRN (10:32)
[2019-12-04] MEDS: NICOTINE 14 MG/24 HOURS TOPICAL PATCH TD SCH (10:33)
[2019-12-04] MEDS ORDERED: INSULIN (NOVOLOG) ASPART 100 UNITS/ML 10ML VIAL ONE ×2 (16:17→22:16)
[2019-12-04] MEDS: THIAMINE HCL 100 MG TABLET (FP) PO SCH (21:23)
[2019-12-04] MEDS: MELATONIN 5 MG TABLETS PO PRN (21:24)
[2019-12-05] MEDS: GABAPENTIN 100 MG CAPSULE PO SCH ×3 (06:29→21:22)
[2019-12-05] MEDS: metFORMIN HCL 500 MG TABLET (FP) PO SCH ×2 (06:29→16:42)
[2019-12-05] MEDS: IBUPROFEN 400 MG TABLET (FP) PO PRN ×2 (06:31→14:07)
[2019-12-05] MEDS: INSULIN SLIDING SCALE (NOVOLOG) 1 VIAL SQ SCH ×4 (06:32→21:23)
[2019-12-05] MEDS: PRENATAL VITAMINS W/ FOLIC ACID TABLET (FP) PO SCH (10:35)
[2019-12-05] MEDS: ACETAMINOPHEN 325 MG TABLET (FP) PO PRN (10:35)
[2019-12-05] MEDS: LISINOPRIL 10 MG TABLET (FP) PO SCH ×2 (10:35→21:22)
[2019-12-05] MEDS: NICOTINE 14 MG/24 HOURS TOPICAL PATCH TD SCH (10:37)
[2019-12-05] MEDS ORDERED: INSULIN (NOVOLOG) ASPART 100 UNITS/ML 10ML VIAL ONE ×2 (20:47→22:02)
[2019-12-05] MEDS: MELATONIN 5 MG TABLETS PO PRN (21:22)
[2019-12-05] MEDS: THIAMINE HCL 100 MG TABLET (FP) PO SCH (21:22)
[2019-12-06] MEDS: metFORMIN HCL 500 MG TABLET (FP) PO SCH ×2 (06:18→16:28)
[2019-12-06] MEDS: GABAPENTIN 100 MG CAPSULE PO SCH ×3 (06:18→21:17)
[2019-12-06] MEDS ORDERED: INSULIN (NOVOLOG) ASPART 100 UNITS/ML 10ML VIAL ONE ×5 (06:21→21:54)
[2019-12-06] MEDS: IBUPROFEN 400 MG TABLET (FP) PO PRN ×2 (06:21→12:08)
[2019-12-06] MEDS: INSULIN SLIDING SCALE (NOVOLOG) 1 VIAL SQ SCH ×4 (07:40→21:18)
[2019-12-06] MEDS: PRENATAL VITAMINS W/ FOLIC ACID TABLET (FP) PO SCH (09:59)
[2019-12-06] MEDS: LISINOPRIL 10 MG TABLET (FP) PO SCH ×2 (09:59→21:17)
[2019-12-06] MEDS: ACETAMINOPHEN 325 MG TABLET (FP) PO PRN ×2 (10:00→14:28)
[2019-12-06] MEDS: NICOTINE 14 MG/24 HOURS TOPICAL PATCH TD SCH (10:01)
[2019-12-06] MEDS: MELATONIN 5 MG TABLETS PO PRN (21:17)
[2019-12-06] MEDS: THIAMINE HCL 100 MG TABLET (FP) PO SCH (22:06)
[2019-12-07] MEDS: IBUPROFEN 400 MG TABLET (FP) PO PRN ×2 (06:32→13:38)
[2019-12-07] MEDS: metFORMIN HCL 500 MG TABLET (FP) PO SCH ×2 (06:32→16:38)
[2019-12-07] MEDS: INSULIN SLIDING SCALE (NOVOLOG) 1 VIAL SQ SCH ×4 (06:35→21:12)
[2019-12-07] MEDS: GABAPENTIN 100 MG CAPSULE PO SCH ×3 (06:35→21:08)
[2019-12-07] MEDS: ACETAMINOPHEN 325 MG TABLET (FP) PO PRN (10:26)
[2019-12-07] MEDS: PRENATAL VITAMINS W/ FOLIC ACID TABLET (FP) PO SCH (10:26)
[2019-12-07] MEDS: LISINOPRIL 10 MG TABLET (FP) PO SCH ×2 (10:26→21:09)
[2019-12-07] MEDS: NICOTINE 14 MG/24 HOURS TOPICAL PATCH TD SCH (10:26)
[2019-12-07] MEDS: THIAMINE HCL 100 MG TABLET (FP) PO SCH (21:09)
[2019-12-07] MEDS: MELATONIN 5 MG TABLETS PO PRN (21:09)
[2019-12-07] MEDS ORDERED: INSULIN (NOVOLOG) ASPART 100 UNITS/ML 10ML VIAL ONE (21:11)
[2019-12-08] MEDS: metFORMIN HCL 500 MG TABLET (FP) PO SCH ×2 (06:36→17:54)
[2019-12-08] MEDS: IBUPROFEN 400 MG TABLET (FP) PO PRN ×2 (06:37→21:29)
[2019-12-08] MEDS: GABAPENTIN 100 MG CAPSULE PO SCH ×3 (06:37→21:27)
[2019-12-08] MEDS ORDERED: INSULIN (NOVOLOG) ASPART 100 UNITS/ML 10ML VIAL ONE (07:29)
[2019-12-08] MEDS: INSULIN SLIDING SCALE (NOVOLOG) 1 VIAL SQ SCH ×4 (07:35→21:41)
[2019-12-08] MEDS: PRENATAL VITAMINS W/ FOLIC ACID TABLET (FP) PO SCH (10:21)
[2019-12-08] MEDS: ACETAMINOPHEN 325 MG TABLET (FP) PO PRN (10:21)
[2019-12-08] MEDS: LISINOPRIL 10 MG TABLET (FP) PO SCH ×2 (10:22→21:27)
--- NOTE | 2019-12-08 10:38 | DS ---
[facility] Rehab Discharge Summary - [facility] Rehab Discharge Summary Admission Date: 11/11/19 Discharge Date: 12/09/19 - History Present History: Alcohol dependence Additional Comments: Pt is a 69 y/o male with a hx of AGUS-alcohol admitted to rehab and scheduled for discharge on 12/09/19. Pt has been referred to [facility] on [place], [place] for CD aftercare. Pt has a primary care provider, Dr. Miguelito Lobato on [address] [place] [address]. Pertinent Past History: Asthma HTN DM Hep C Peripheral Neuropathy - Discharge Physical Exam Vital Signs: Vital Signs Temperature 98.5 F 12/08/19 07:02 Pulse Rate 86 12/08/19 07:02 Respiratory Rate 18 12/08/19 07:02 Blood Pressure 114/81 12/08/19 07:02 O2 Sat by Pulse Oximetry (%) Alert o x 3,denies s/h/i nad oob ambulating with cane cardiac:s1 s2,rrr lungs:cta,tania. abdomen:+bs,soft,nt,nd extremities/skin:no edema,skin intact. Pertinent Admission Physical Exam Findings: Laboratory Tests 11/12/19 11/12/19 11/12/19 07:13 07:20 07:20 WBC 6.1 RBC 3.61 L Hgb 11.1 L Hct 33.8 L MCV 93.6 MCH 30.8 MCHC 32.9 RDW 14.7 D Plt Count 219 MPV 9.1 Sodium Potassium Chloride Carbon Dioxide Anion Gap BUN Creatinine Est GFR (CKD-EPI)AfAm Est GFR (CKD-EPI)NonAf POC Glucometer 287 Random Glucose Calcium Total Bilirubin AST ALT Alkaline Phosphatase Total Protein Albumin Urine Color Urine Appearance Urine pH Ur Specific [place] Urine Protein Urine Glucose (UA) Urine Ketones Urine Blood Urine Nitrite Urine Bilirubin Urine Urobilinogen Ur Leukocyte Esterase RPR Titer Nonreactive 11/12/19 11/12/19 11/12/19 07:20 12:15 16:33 WBC RBC Hgb Hct MCV MCH MCHC RDW Plt Count MPV Sodium 138 Potassium 3.6 Chloride 104 Carbon Dioxide 27 Anion Gap 8 BUN 15.1 Creatinine 0.9 Est GFR (CKD-EPI)AfAm 102.07 Est GFR (CKD-EPI)NonAf 88.07 POC Glucometer 420 326 Random Glucose 281 H Calcium 8.6 Total Bilirubin 0.2 AST 99 H ALT 75 H Alkaline Phosphatase 123 H Total Protein 6.7 Albumin 2.9 L Urine Color Urine Appearance Urine pH Ur Specific [place] Urine Protein Urine Glucose (UA) Urine Ketones Urine Blood Urine Nitrite Urine Bilirubin Urine Urobilinogen Ur Leukocyte Esterase RPR Titer 11/12/19 11/13/19 11/13/19 20:25 06:28 12:00 WBC RBC Hgb Hct MCV MCH MCHC RDW Plt Count MPV Sodium Potassium Chloride Carbon Dioxide Anion Gap BUN Creatinine Est GFR (CKD-EPI)AfAm Est GFR (CKD-EPI)NonAf POC Glucometer [phone] Random Glucose Calcium Total Bilirubin AST ALT Alkaline Phosphatase Total Protein Albumin Urine Color Urine Appearance Urine pH Ur Specific [place] Urine Protein Urine Glucose (UA) Urine Ketones Urine Blood Urine Nitrite Urine Bilirubin Urine Urobilinogen Ur Leukocyte Esterase RPR Titer 11/13/19 11/13/19 11/14/19 16:29 20:32 06:34 WBC RBC Hgb Hct MCV MCH MCHC RDW Plt Count MPV Sodium Potassium Chloride Carbon Dioxide Anion Gap BUN Creatinine Est GFR (CKD-EPI)AfAm Est GFR (CKD-EPI)NonAf POC Glucometer [phone] Random Glucose Calcium Total Bilirubin AST ALT Alkaline Phosphatase Total Protein Albumin Urine Color Urine Appearance Urine pH Ur Specific [place] Urine Protein Urine Glucose (UA) Urine Ketones Urine Blood Urine Nitrite Urine Bilirubin Urine Urobilinogen Ur Leukocyte Esterase RPR Titer 11/14/19 11/14/19 11/14/19 11:19 16:36 21:35 WBC RBC Hgb Hct MCV MCH MCHC RDW Plt Count MPV Sodium Potassium Chloride Carbon Dioxide Anion Gap BUN Creatinine Est GFR (CKD-EPI)AfAm Est GFR (CKD-EPI)NonAf POC Glucometer [phone] Random Glucose Calcium Total Bilirubin AST ALT Alkaline Phosphatase Total Protein Albumin Urine Color Urine Appearance Urine pH Ur Specific [place] Urine Protein Urine Glucose (UA) Urine Ketones Urine Blood Urine Nitrite Urine Bilirubin Urine Urobilinogen Ur Leukocyte Esterase RPR Titer 11/15/19 11/15/19 11/15/19 07:07 11:54 16:32 WBC RBC Hgb Hct MCV MCH MCHC RDW Plt Count MPV Sodium Potassium Chloride Carbon Dioxide Anion Gap BUN Creatinine Est GFR (CKD-EPI)AfAm Est GFR (CKD-EPI)NonAf POC Glucometer [phone] Random Glucose Calcium Total Bilirubin AST ALT Alkaline Phosphatase Total Protein Albumin Urine Color Urine Appearance Urine pH Ur Specific [place] Urine Protein Urine Glucose (UA) Urine Ketones Urine Blood Urine Nitrite Urine Bilirubin Urine Urobilinogen Ur Leukocyte Esterase RPR Titer 11/15/19 11/16/19 11/16/19 21:26 06:38 11:30 WBC RBC Hgb Hct MCV MCH MCHC RDW Plt Count MPV Sodium Potassium Chloride Carbon Dioxide Anion Gap BUN Creatinine Est GFR (CKD-EPI)AfAm Est GFR (CKD-EPI)NonAf POC Glucometer [phone] Random Glucose Calcium Total Bilirubin AST ALT Alkaline Phosphatase Total Protein Albumin Urine Color Urine Appearance Urine pH Ur Specific [place] Urine Protein Urine Glucose (UA) Urine Ketones Urine Blood Urine Nitrite Urine Bilirubin Urine Urobilinogen Ur Leukocyte Esterase RPR Titer 11/16/19 11/16/19 11/16/19 14:00 16:28 20:48 WBC RBC Hgb Hct MCV MCH MCHC RDW Plt Count MPV Sodium Potassium Chloride Carbon Dioxide Anion Gap BUN Creatinine Est GFR (CKD-EPI)AfAm Est GFR (CKD-EPI)NonAf POC Glucometer [phone] Random Glucose Calcium Total Bilirubin AST ALT Alkaline Phosphatase Total Protein Albumin Urine Color Yellow Urine Appearance Clear Urine pH 6.0 Ur Specific [place] 1.020 Urine Protein Trace Urine Glucose (UA) 3+ H Urine Ketones Negative Urine Blood Negative Urine Nitrite Negative Urine Bilirubin Negative Urine Urobilinogen 0.2 Ur Leukocyte Esterase Negative RPR Titer 11/17/19 11/17/19 11/17/19 06:51 12:10 16:19 WBC RBC Hgb Hct MCV MCH MCHC RDW Plt Count MPV Sodium Potassium Chloride Carbon Dioxide Anion Gap BUN Creatinine Est GFR (CKD-EPI)AfAm Est GFR (CKD-EPI)NonAf POC Glucometer [phone] Random Glucose Calcium Total Bilirubin AST ALT Alkaline Phosphatase Total Protein Albumin Urine Color Urine Appearance Urine pH Ur Specific [place] Urine Protein Urine Glucose (UA) Urine Ketones Urine Blood Urine Nitrite Urine Bilirubin Urine Urobilinogen Ur Leukocyte Esterase RPR Titer 11/17/19 11/18/19 11/18/19 20:40 06:37 11:58 WBC RBC Hgb Hct MCV MCH MCHC RDW Plt Count MPV Sodium Potassium Chloride Carbon Dioxide Anion Gap BUN Creatinine Est GFR (CKD-EPI)AfAm Est GFR (CKD-EPI)NonAf POC Glucometer [phone] Random Glucose Calcium Total Bilirubin AST ALT Alkaline Phosphatase Total Protein Albumin Urine Color Urine Appearance Urine pH Ur Specific [place] Urine Protein Urine Glucose (UA) Urine Ketones Urine Blood Urine Nitrite Urine Bilirubin Urine Urobilinogen Ur Leukocyte Esterase RPR Titer 11/18/19 11/18/19 11/19/19 16:43 20:52 07:35 WBC RBC Hgb Hct MCV MCH MCHC RDW Plt Count MPV Sodium Potassium Chloride Carbon Dioxide Anion Gap BUN Creatinine Est GFR (CKD-EPI)AfAm Est GFR (CKD-EPI)NonAf POC Glucometer [phone] Random Glucose Calcium Total Bilirubin AST ALT Alkaline Phosphatase Total Protein Albumin Urine Color Urine Appearance Urine pH Ur Specific [place] Urine Protein Urine Glucose (UA) Urine Ketones Urine Blood Urine Nitrite Urine Bilirubin Urine Urobilinogen Ur Leukocyte Esterase RPR Titer 11/19/19 11/19/19 11/19/19 11:53 16:17 20:21 WBC RBC Hgb Hct MCV MCH MCHC RDW Plt Count MPV Sodium Potassium Chloride Carbon Dioxide Anion Gap BUN Creatinine Est GFR (CKD-EPI)AfAm Est GFR (CKD-EPI)NonAf POC Glucometer [phone] Random Glucose Calcium Total Bilirubin AST ALT Alkaline Phosphatase Total Protein Albumin Urine Color Urine Appearance Urine pH Ur Specific [place] Urine Protein Urine Glucose (UA) Urine Ketones Urine Blood Urine Nitrite Urine Bilirubin Urine Urobilinogen Ur Leukocyte Esterase RPR Titer 11/20/19 11/20/19 11/20/19 07:23 11:37 16:59 WBC RBC Hgb Hct MCV MCH MCHC RDW Plt Count MPV Sodium Potassium Chloride Carbon Dioxide Anion Gap BUN Creatinine Est GFR (CKD-EPI)AfAm Est GFR (CKD-EPI)NonAf POC Glucometer [phone] Random Glucose Calcium Total Bilirubin AST ALT Alkaline Phosphatase Total Protein Albumin Urine Color Urine Appearance Urine pH Ur Specific [place] Urine Protein Urine Glucose (UA) Urine Ketones Urine Blood Urine Nitrite Urine Bilirubin Urine Urobilinogen Ur Leukocyte Esterase RPR Titer 11/20/19 11/21/19 11/21/19 21:27 06:30 11:48 WBC RBC Hgb Hct MCV MCH MCHC RDW Plt Count MPV Sodium Potassium Chloride Carbon Dioxide Anion Gap BUN Creatinine Est GFR (CKD-EPI)AfAm Est GFR (CKD-EPI)NonAf POC Glucometer [phone] Random Glucose Calcium Total Bilirubin AST ALT Alkaline Phosphatase Total Protein Albumin Urine Color Urine Appearance Urine pH Ur Specific [place] Urine Protein Urine Glucose (UA) Urine Ketones Urine Blood Urine Nitrite Urine Bilirubin Urine Urobilinogen Ur Leukocyte Esterase RPR Titer 11/21/19 11/21/19 11/22/19 16:32 20:28 06:22 WBC RBC Hgb Hct MCV MCH MCHC RDW Plt Count MPV Sodium Potassium Chloride Carbon Dioxide Anion Gap BUN Creatinine Est GFR (CKD-EPI)AfAm Est GFR (CKD-EPI)NonAf POC Glucometer [phone] Random Glucose Calcium Total Bilirubin AST ALT Alkaline Phosphatase Total Protein Albumin Urine Color Urine Appearance Urine pH Ur Specific [place] Urine Protein Urine Glucose (UA) Urine Ketones Urine Blood Urine Nitrite Urine Bilirubin Urine Urobilinogen Ur Leukocyte Esterase RPR Titer 11/22/19 11/22/19 11/22/19 11:53 16:43 21:26 WBC RBC Hgb Hct MCV MCH MCHC RDW Plt Count MPV Sodium Potassium Chloride Carbon Dioxide Anion Gap BUN Creatinine Est GFR (CKD-EPI)AfAm Est GFR (CKD-EPI)NonAf POC Glucometer [phone] Random Glucose Calcium Total Bilirubin AST ALT Alkaline Phosphatase Total Protein Albumin Urine Color Urine Appearance Urine pH Ur Specific [place] Urine Protein Urine Glucose (UA) Urine Ketones Urine Blood Urine Nitrite Urine Bilirubin Urine Urobilinogen Ur Leukocyte Esterase RPR Titer 11/23/19 11/23/19 11/23/19 06:46 11:54 16:28 WBC RBC Hgb Hct MCV MCH MCHC RDW Plt Count MPV Sodium Potassium Chloride Carbon Dioxide Anion Gap BUN Creatinine Est GFR (CKD-EPI)AfAm Est GFR (CKD-EPI)NonAf POC Glucometer [phone] Random Glucose Calcium Total Bilirubin AST ALT Alkaline Phosphatase Total Protein Albumin Urine Color Urine Appearance Urine pH Ur Specific [place] Urine Protein Urine Glucose (UA) Urine Ketones Urine Blood Urine Nitrite Urine Bilirubin Urine Urobilinogen Ur Leukocyte Esterase RPR Titer 11/23/19 11/24/19 11/24/19 20:50 06:40 12:03 WBC RBC Hgb Hct MCV MCH MCHC RDW Plt Count MPV Sodium Potassium Chloride Carbon Dioxide Anion Gap BUN Creatinine Est GFR (CKD-EPI)AfAm Est GFR (CKD-EPI)NonAf POC Glucometer [phone] Random Glucose Calcium Total Bilirubin AST ALT Alkaline Phosphatase Total Protein Albumin Urine Color Urine Appearance Urine pH Ur Specific [place] Urine Protein Urine Glucose (UA) Urine Ketones Urine Blood Urine Nitrite Urine Bilirubin Urine Urobilinogen Ur Leukocyte Esterase RPR Titer 11/24/19 11/24/19 11/25/19 16:23 21:25 06:33 WBC RBC Hgb Hct MCV MCH MCHC RDW Plt Count MPV Sodium Potassium Chloride Carbon Dioxide Anion Gap BUN Creatinine Est GFR (CKD-EPI)AfAm Est GFR (CKD-EPI)NonAf POC Glucometer [phone] Random Glucose Calcium Total Bilirubin AST ALT Alkaline Phosphatase Total Protein Albumin Urine Color Urine Appearance Urine pH Ur Specific [place] Urine Protein Urine Glucose (UA) Urine Ketones Urine Blood Urine Nitrite Urine Bilirubin Urine Urobilinogen Ur Leukocyte Esterase RPR Titer 11/25/19 11/25/19 11/25/19 11:52 16:33 20:21 WBC RBC Hgb Hct MCV MCH MCHC RDW Plt Count MPV Sodium Potassium Chloride Carbon Dioxide Anion Gap BUN Creatinine Est GFR (CKD-EPI)AfAm Est GFR (CKD-EPI)NonAf POC Glucometer [phone] Random Glucose Calcium Total Bilirubin AST ALT Alkaline Phosphatase Total Protein Albumin Urine Color Urine Appearance Urine pH Ur Specific [place] Urine Protein Urine Glucose (UA) Urine Ketones Urine Blood Urine Nitrite Urine Bilirubin Urine Urobilinogen Ur Leukocyte Esterase RPR Titer 11/26/19 11/26/19 11/26/19 06:24 11:44 16:26 WBC RBC Hgb Hct MCV MCH MCHC RDW Plt Count MPV Sodium Potassium Chloride Carbon Dioxide Anion Gap BUN Creatinine Est GFR (CKD-EPI)AfAm Est GFR (CKD-EPI)NonAf POC Glucometer [phone] Random Glucose Calcium Total Bilirubin AST ALT Alkaline Phosphatase Total Protein Albumin Urine Color Urine Appearance Urine pH Ur Specific [place] Urine Protein Urine Glucose (UA) Urine Ketones Urine Blood Urine Nitrite Urine Bilirubin Urine Urobilinogen Ur Leukocyte Esterase RPR Titer 11/26/19 11/27/19 11/27/19 20:33 06:53 11:19 WBC RBC Hgb Hct MCV MCH MCHC RDW Plt Count MPV Sodium Potassium Chloride Carbon Dioxide Anion Gap BUN Creatinine Est GFR (CKD-EPI)AfAm Est GFR (CKD-EPI)NonAf POC Glucometer [phone] Random Glucose Calcium Total Bilirubin AST ALT Alkaline Phosphatase Total Protein Albumin Urine Color Urine Appearance Urine pH Ur Specific [place] Urine Protein Urine Glucose (UA) Urine Ketones Urine Blood Urine Nitrite Urine Bilirubin Urine Urobilinogen Ur Leukocyte Esterase RPR Titer 11/27/19 11/27/19 11/28/19 16:13 21:29 06:50 WBC RBC Hgb Hct MCV MCH MCHC RDW Plt Count MPV Sodium Potassium Chloride Carbon Dioxide Anion Gap BUN Creatinine Est GFR (CKD-EPI)AfAm Est GFR (CKD-EPI)NonAf POC Glucometer [phone] Random Glucose Calcium Total Bilirubin AST ALT Alkaline Phosphatase Total Protein Albumin Urine Color Urine Appearance Urine pH Ur Specific [place] Urine Protein Urine Glucose (UA) Urine Ketones Urine Blood Urine Nitrite Urine Bilirubin Urine Urobilinogen Ur Leukocyte Esterase RPR Titer 11/28/19 11/28/19 11/28/19 11:50 16:27 20:50 WBC RBC Hgb Hct MCV MCH MCHC RDW Plt Count MPV Sodium Potassium Chloride Carbon Dioxide Anion Gap BUN Creatinine Est GFR (CKD-EPI)AfAm Est GFR (CKD-EPI)NonAf POC Glucometer [phone] Random Glucose Calcium Total Bilirubin AST ALT Alkaline Phosphatase Total Protein Albumin Urine Color Urine Appearance Urine pH Ur Specific [place] Urine Protein Urine Glucose (UA) Urine Ketones Urine Blood Urine Nitrite Urine Bilirubin Urine Urobilinogen Ur Leukocyte Esterase RPR Titer 11/29/19 11/29/19 11/29/19 11:56 16:44 20:13 WBC RBC Hgb Hct MCV MCH MCHC RDW Plt Count MPV Sodium Potassium Chloride Carbon Dioxide Anion Gap BUN Creatinine Est GFR (CKD-EPI)AfAm Est GFR (CKD-EPI)NonAf POC Glucometer [phone] Random Glucose Calcium Total Bilirubin AST ALT Alkaline Phosphatase Total Protein Albumin Urine Color Urine Appearance Urine pH Ur Specific [place] Urine Protein Urine Glucose (UA) Urine Ketones Urine Blood Urine Nitrite Urine Bilirubin Urine Urobilinogen Ur Leukocyte Esterase RPR Titer 11/30/19 11/30/19 11/30/19 06:40 12:03 16:26 WBC RBC Hgb Hct MCV MCH MCHC RDW Plt Count MPV Sodium Potassium Chloride Carbon Dioxide Anion Gap BUN Creatinine Est GFR (CKD-EPI)AfAm Est GFR (CKD-EPI)NonAf POC Glucometer [phone] Random Glucose Calcium Total Bilirubin AST ALT Alkaline Phosphatase Total Protein Albumin Urine Color Urine Appearance Urine pH Ur Specific [place] Urine Protein Urine Glucose (UA) Urine Ketones Urine Blood Urine Nitrite Urine Bilirubin Urine Urobilinogen Ur Leukocyte Esterase RPR Titer 11/30/19 12/01/19 12/01/19 21:30 06:34 12:24 WBC RBC Hgb Hct MCV MCH MCHC RDW Plt Count MPV Sodium Potassium Chloride Carbon Dioxide Anion Gap BUN Creatinine Est GFR (CKD-EPI)AfAm Est GFR (CKD-EPI)NonAf POC Glucometer [phone] Random Glucose Calcium Total Bilirubin AST ALT Alkaline Phosphatase Total Protein Albumin Urine Color Urine Appearance Urine pH Ur Specific [place] Urine Protein Urine Glucose (UA) Urine Ketones Urine Blood Urine Nitrite Urine Bilirubin Urine Urobilinogen Ur Leukocyte Esterase RPR Titer 12/01/19 12/01/19 12/02/19 16:19 20:50 05:53 WBC RBC Hgb Hct MCV MCH MCHC RDW Plt Count MPV Sodium Potassium Chloride Carbon Dioxide Anion Gap BUN Creatinine Est GFR (CKD-EPI)AfAm Est GFR (CKD-EPI)NonAf POC Glucometer [phone] Random Glucose Calcium Total Bilirubin AST ALT Alkaline Phosphatase Total Protein Albumin Urine Color Urine Appearance Urine pH Ur Specific [place] Urine Protein Urine Glucose (UA) Urine Ketones Urine Blood Urine Nitrite Urine Bilirubin Urine Urobilinogen Ur Leukocyte Esterase RPR Titer 12/02/19 12/02/19 12/02/19 12:00 16:20 20:48 WBC RBC Hgb Hct MCV MCH MCHC RDW Plt Count MPV Sodium Potassium Chloride Carbon Dioxide Anion Gap BUN Creatinine Est GFR (CKD-EPI)AfAm Est GFR (CKD-EPI)NonAf POC Glucometer [phone] Random Glucose Calcium Total Bilirubin AST ALT Alkaline Phosphatase Total Protein Albumin Urine Color Urine Appearance Urine pH Ur Specific [place] Urine Protein Urine Glucose (UA) Urine Ketones Urine Blood Urine Nitrite Urine Bilirubin Urine Urobilinogen Ur Leukocyte Esterase RPR Titer 12/03/19 12/03/19 12/03/19 06:19 12:10 16:38 WBC RBC Hgb Hct MCV MCH MCHC RDW Plt Count MPV Sodium Potassium Chloride Carbon Dioxide Anion Gap BUN Creatinine Est GFR (CKD-EPI)AfAm Est GFR (CKD-EPI)NonAf POC Glucometer [phone] Random Glucose Calcium Total Bilirubin AST ALT Alkaline Phosphatase Total Protein Albumin Urine Color Urine Appearance Urine pH Ur Specific [place] Urine Protein Urine Glucose (UA) Urine Ketones Urine Blood Urine Nitrite Urine Bilirubin Urine Urobilinogen Ur Leukocyte Esterase RPR Titer 12/03/19 12/04/19 12/04/19 21:01 06:07 12:11 WBC RBC Hgb Hct MCV MCH MCHC RDW Plt Count MPV Sodium Potassium Chloride Carbon Dioxide Anion Gap BUN Creatinine Est GFR (CKD-EPI)AfAm Est GFR (CKD-EPI)NonAf POC Glucometer [phone] Random Glucose Calcium Total Bilirubin AST ALT Alkaline Phosphatase Total Protein Albumin Urine Color Urine Appearance Urine pH Ur Specific [place] Urine Protein Urine Glucose (UA) Urine Ketones Urine Blood Urine Nitrite Urine Bilirubin Urine Urobilinogen Ur Leukocyte Esterase RPR Titer 12/04/19 12/04/19 12/05/19 16:45 21:23 06:28 WBC RBC Hgb Hct MCV MCH MCHC RDW Plt Count MPV Sodium Potassium Chloride Carbon Dioxide Anion Gap BUN Creatinine Est GFR (CKD-EPI)AfAm Est GFR (CKD-EPI)NonAf POC Glucometer [phone] Random Glucose Calcium Total Bilirubin AST ALT Alkaline Phosphatase Total Protein Albumin Urine Color Urine Appearance Urine pH Ur Specific [place] Urine Protein Urine Glucose (UA) Urine Ketones Urine Blood Urine Nitrite Urine Bilirubin Urine Urobilinogen Ur Leukocyte Esterase RPR Titer 12/05/19 12/05/19 12/05/19 12:05 16:41 20:43 WBC RBC Hgb Hct MCV MCH MCHC RDW Plt Count MPV Sodium Potassium Chloride Carbon Dioxide Anion Gap BUN Creatinine Est GFR (CKD-EPI)AfAm Est GFR (CKD-EPI)NonAf POC Glucometer 197 165 296 Random Glucose Calcium Total Bilirubin AST ALT Alkaline Phosphatase Total Protein Albumin Urine Color Urine Appearance Urine pH Ur Specific [place] Urine Protein Urine Glucose (UA) Urine Ketones Urine Blood Urine Nitrite Urine Bilirubin Urine Urobilinogen Ur Leukocyte Esterase RPR Titer 12/06/19 12/06/19 12/06/19 06:17 12:05 16:25 WBC RBC Hgb Hct MCV MCH MCHC RDW Plt Count MPV Sodium Potassium Chloride Carbon Dioxide Anion Gap BUN Creatinine Est GFR (CKD-EPI)AfAm Est GFR (CKD-EPI)NonAf POC Glucometer [phone] Random Glucose Calcium Total Bilirubin AST ALT Alkaline Phosphatase Total Protein Albumin Urine Color Urine Appearance Urine pH Ur Specific [place] Urine Protein Urine Glucose (UA) Urine Ketones Urine Blood Urine Nitrite Urine Bilirubin Urine Urobilinogen Ur Leukocyte Esterase RPR Titer 12/06/19 12/07/19 12/07/19 20:33 06:31 11:58 WBC RBC Hgb Hct MCV MCH MCHC RDW Plt Count MPV Sodium Potassium Chloride Carbon Dioxide Anion Gap BUN Creatinine Est GFR (CKD-EPI)AfAm Est GFR (CKD-EPI)NonAf POC Glucometer [phone] Random Glucose Calcium Total Bilirubin AST ALT Alkaline Phosphatase Total Protein Albumin Urine Color Urine Appearance Urine pH Ur Specific [place] Urine Protein Urine Glucose (UA) Urine Ketones Urine Blood Urine Nitrite Urine Bilirubin Urine Urobilinogen Ur Leukocyte Esterase RPR Titer 12/07/19 12/07/19 12/08/19 16:35 21:07 06:35 WBC RBC Hgb Hct MCV MCH MCHC RDW Plt Count MPV Sodium Potassium Chloride Carbon Dioxide Anion Gap BUN Creatinine Est GFR (CKD-EPI)AfAm Est GFR (CKD-EPI)NonAf POC Glucometer [phone] Random Glucose Calcium Total Bilirubin AST ALT Alkaline Phosphatase Total Protein Albumin Urine Color Urine Appearance Urine pH Ur Specific [place] Urine Protein Urine Glucose (UA) Urine Ketones Urine Blood Urine Nitrite Urine Bilirubin Urine Urobilinogen Ur Leukocyte Esterase RPR Titer - Treatment Discharge Condition: Discharge condition good Hospital Course: Rehabilitated safely CD aftercare referral accepted Pt participate in groups and individual sessions while in treatment. - Medication Discharge Medications: Ambulatory Orders Atorvastatin Ca [Lipitor] 80 mg PO HS 11/29/19 Insulin Glargine,Hum.rec.anlog [Lantus] 15 unit SQ HS 11/29/19 Insulin Lispro [Humalog] 12 unit SQ TID 11/29/19 Lisinopril 20 mg PO DAILY 11/29/19 Pregabalin [Lyrica] 75 mg PO DAILY 11/29/19 Ramelteon [Rozerem] 8 mg PO HS 11/29/19 Sitagliptin Phosphate [Januvia] 100 mg PO DAILY 11/29/19 Gabapentin 100 mg PO TID 14 Days #42 capsule 12/09/19 Lisinopril [Prinivil] 10 mg PO BID #60 tablet 12/09/19 metFORMIN HCL [Glucophage -] 1,000 mg PO BID@0700,1630 14 Days tablet 12/09/19 - Medication-Assisted Treatment (MAT) Medication-Assisted Treatment (MAT): No - Discharge Instructions Diet, activity, other medical instructions: Diet:BARB/NCS Activity:oob ad rosemarie with cane Other medical instructions:follow up with CD aftercare as scheduled. Follow up with your primary care doctor Miguelito Jacome as scheduled today after discharge. - Diagnosis (1) HTN (hypertension) Status: Chronic Qualifiers: Hypertension type: essential hypertension Qualified Code(s): I10 - Essential (primary) hypertension (2) Periorbital hematoma of left eye Status: Resolved (3) Diabetes mellitus Status: Chronic Qualifiers: Diabetes mellitus type: type 2 Diabetes mellitus snf insulin use: with snf use (4) Nicotine dependence Status: Chronic Qualifiers: Nicotine product type: cigarettes Substance use status: uncomplicated Qualified Code(s): F17.210 - Nicotine dependence, cigarettes, uncomplicated (5) Perforated nasal septum Status: Chronic (6) Type 2 diabetes mellitus Status: Chronic Qualifiers: Diabetes mellitus snf insulin use: unspecified ad terminal makeup operator insulin use status Diabetes mellitus complication status: with neurologic complications Diabetes mellitus complication detail: with unspecified neuropathy Qualified Code(s): E11.40 - Type 2 diabetes mellitus with diabetic neuropathy, unspecified (7) Alcohol dependence Status: Acute Qualifiers: Substance use status: uncomplicated Qualified Code(s): F10.20 - Alcohol dependence, uncomplicated (8) Essential hypertension Status: Chronic (9) Hepatitis C Status: Chronic Qualifiers: Viral hepatitis chronicity: unspecified (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 [facility] Rx for Lisinopril 10 mg po bid #60, Glucophage 1000 mg po bid x 14 days and Gabapentin 100 mg po tid X14 days electronically sent to patients home [facility] pharmacy for order picker/assembler until he can get to his primary care provider.. Reminded Pt to follow up with his primary care provider for further medical management.
[2019-12-08] MEDS: NICOTINE 14 MG/24 HOURS TOPICAL PATCH TD SCH (12:55)
[2019-12-08] MEDS: THIAMINE HCL 100 MG TABLET (FP) PO SCH (21:27)
[2019-12-09] MEDS: IBUPROFEN 400 MG TABLET (FP) PO PRN (06:30)
[2019-12-09] MEDS: GABAPENTIN 100 MG CAPSULE PO SCH (06:30)
[2019-12-09] MEDS: metFORMIN HCL 500 MG TABLET (FP) PO SCH (06:30)
[2019-12-09] MEDS: INSULIN SLIDING SCALE (NOVOLOG) 1 VIAL SQ SCH (06:39)
[2019-12-09 07:06] VITALS: BP 129/94; PULSE 77; TEMP 97.8
[2019-12-09] MEDS: ACETAMINOPHEN 325 MG TABLET (FP) PO PRN (10:05)
[2019-12-09] MEDS: PRENATAL VITAMINS W/ FOLIC ACID TABLET (FP) PO SCH (10:05)
[2019-12-09] MEDS: LISINOPRIL 10 MG TABLET (FP) PO SCH (10:05)
[2019-12-09] MEDS: NICOTINE 14 MG/24 HOURS TOPICAL PATCH TD SCH (10:06)
--- NOTE | 2019-12-09 13:25 | PN ---
S Progress Note Note: Pt was discharged today as scheduled. Vital Signs - 24 hr 12/09/19 12/09/19 12/09/19 00:30 03:30 07:04 Temperature Pulse Rate Respiratory 16 16 16 Rate Blood Pressure 12/09/19 07:05 Temperature 97.8 F Pulse Rate 77 Respiratory 18 Rate Blood Pressure 129/94 Alert o x 3'denies s/h/i nad oob ambulating with steady gait with cane A/P Medically stable Reminded pt to follow up with Cd aftercare recommendations. Follow up with primary care provider today as scheduled.
== END 2019-12-09 10:20 | disposition home or self-care (01) | DRG 772 ==
LOC: YASAS 18:27 → Y5N 21:19
PROVIDERS: ADMIT Neuromusculoskeletal Medicine & OMM; ATTEND Neuromusculoskeletal Medicine & OMM
PROC: HZ42ZZZ Group Counseling for Substance Abuse Treatment, Cognitive-Behavioral (ICD-10-PCS; principal; 2019-11-11)
DX: F10.20 Alcohol dependence, uncomplicated (principal); F17.210 Nicotine dependence, cigarettes, uncomplicated; I10 Essential (primary) hypertension; E11.65 Type 2 diabetes mellitus with hyperglycemia; E11.42 Type 2 diabetes mellitus with diabetic polyneuropathy; Z79.84 Long term (current) use of oral hypoglycemic drugs; J45.998 Other asthma; G62.9 Polyneuropathy, unspecified; J34.89 Other specified disorders of nose and nasal sinuses; M18.2 Bilateral post-traumatic osteoarthritis of first carpometacarpal joints; M20.012 Mallet finger of left finger(s); R26.81 Unsteadiness on feet; Z99.89 Dependence on other enabling machines and devices; Z87.01 Personal history of pneumonia (recurrent)
CPT/HCPCS: 36415; 80053; 81003; 82962; 85027; 86593; 94640